=== PATIENT | female | born 1995 | race African-American/Black ===

== ENCOUNTER 2017-11-19 16:41 | Emergency (ER) | payer SELFPAY ==
[2017-11-19 18:02] LABS: #Basophils 0.1 thou/uL (0.0-0.2); #Eosinphils 0.2 thou/uL (0.0-0.7); #Lymphocytes 2.2 thou/uL (1.20-3.40); #Monocytes 0.5 thou/uL (0.11-0.59); %Basophils 1.2 % (0.0-1.0); %Eosinophils 3.6 % (0.0-10.0); %Lymphocytes 36.5 % (21.0-51.0); %Monocytes 8.8 % (0.0-10.0); %Neutrophils 49.9 % (42.0-75.0); Hemoglobin 12.8 g/dL (12.0-16.0); Mean Corpuscular HGB CONC 33.2 g/dL (32.0-36.0); Mean Corpuscular Hemoglobin 31.7 pg (27.0-31.0); Mean Corpuscular Volume 95.4 fl (81.0-99.0); Platelet Count 268 thou/uL (130-400); RBC Distribution Width 11.7 % (11.5-14.5); Red Blood Cell (RBC) Count 4.04 mill/uL (4.20-5.40)
[2017-11-19 18:08] LABS: INR-International Normal Ratio 0.9; PTT 27.5 SEC (22.9-36.1); Prothrombin Time 12.6 SEC (12.0-14.7)
[2017-11-19 18:25] LABS: Anion Gap 8 mmol/L (10-20); BUN (Urea Nitrogen) 11 mg/dL (7.0-18.7); Calc. Creatinine Clearance 0 mL/min (70-130); Calcium 9.2 mg/dL (7.8-10.44); Carbon Dioxide 26 mmol/L (22-29); Chloride 107 mmol/L (98-107); Estimated GFR-MDRD Greater than 90; Glucose 78 mg/dL (70-105); Potassium 4.3 mmol/L (3.5-5.1); Sodium 137 mmol/L (136-145)
--- NOTE | 2017-11-19 20:16 | CON ---
DATE OF CONSULTATION: 11/19/2017 TIME OF ADMISSION: 1745 hours. TIME OF VISIT: 1745 hours. PRIMARY CARE PHYSICIAN: Ede Rodriguez. CHIEF COMPLAINT: Right leg pain. HISTORY OF PRESENT ILLNESS: Ms. Rodriguez is a 22-year-old female with a history of anxiety, depressio n, and bipolar disorder who presents to the emergency department tonight sent by her primary doctor. The patient developed right leg pain and some swelling and went to [facility] ER about 5 days a go. She was diagnosed with a right lower extremity DVT, felt secondary to her oral contraceptive pil ls. She was given a dose of Xarelto and discharged home with a script for Xarelto. When she went to the pharmacy, she was unable to afford it and did not get it filled. She presented back to the [facility] Emergency Department 2 days later on 11/16/2017 and showed [facility] information, so she was instead given a dose of Lovenox and Coumadin, given a prescription for Coum coleen, Lovenox and sent home again. When she went to the pharmacy, she still could not afford the Lovenox and so did not get either one f illed. She presented to her primary care physician's office today and they subsequently told her to go to [facility] emergency department to get admitted. On arrival here, she had no lab work done. Her vitals were normal. We were called for admission. solar manager was contacted and was able to get them a coupon for the first 30 days of Xarelto for formerly [facility] e. PAST MEDICAL HISTORY: 1. Deep vein thrombosis. 2. Anxiety. 3. Bipolar disorder. 4. Depression. PAST SURGICAL HISTORY: Includes in 02/2016. HOME MEDICATIONS: Oral contraceptive pill, she is not taking at present. ALLERGIES: CITRIC ACID and to STRAWBERRIES. FAMILY HISTORY: Negative for clotting or bleeding disorder. No immune dysfunction. SOCIAL HISTORY: Negative for habits x3. She is not , but a significant other is with her. REVIEW OF SYSTEMS: A 10-point review of systems was performed, negative for all other systems except as stated as per HPI. Specifically, no chest pain, shortness of breath, no fevers or chills, coughi ng or hemoptysis. PHYSICAL EXAMINATION: VITAL SIGNS: Temperature 99.0, pulse 86, blood pressure 134/69, respiratory rate 16, satting 98% on room air. GENERAL: She is awake. She is alert. She is oriented x3, is well-developed, well-nourished female, appears to be in no acute distress. HEENT: Normocephalic, atraumatic. Pupils are equal, round, reactive to light bilaterally. ENT: Mucous membranes moist. There are no visible lesions. No thrush. NECK: Supple. She has no lymphadenopathy, JVD or thyromegaly. She has normal carotid upstrokes wit hout bruits. RESPIRATORY: Lungs are clear. She has no wheezing, no rales, no rhonchi. No prolonged expiratory p hase. She has good air movement. Symmetrical chest excursion. CARDIOVASCULAR: She has normal cardiac and regular. Normal S1 and S2. No S3 or S4. No audible mur murs. ABDOMEN: Soft, is nontender, nondistended. No masses, organomegaly. No rebound, rigidity or guardi ng. EXTREMITIES: No cyanosis, no clubbing. She has 1+ edema of the right lower extremity from the ankle down. Left extremity is normal. She has no palpable cords and normal pulses. SKIN: Warm, moist, and well perfused. She has no rashes or lesions. MUSCULOSKELETAL: Exam is normal to inspection. No joint inflammation. No palpable effusions. NEUROLOGIC: Cranial nerves II-XII are grossly intact. She has normal speech, 5/5 strength in all 4 extremities. No focal deficits. LABORATORY DATA: None. RADIOGRAPHIC STUDIES: None. ASSESSMENT AND PLAN: 1. Right lower extremity deep venous thrombosis: The patient was given a coupon by case management for free starter pack for Xarelto. I have given her a script for Xarelto and filled out the patient assistance paperwork. They were strongly encouraged to send this in as soon as possible to get 3-6 m onth course of Xarelto covered by the drug company for free. Everything is done except for her part and financial information can be sent in immediately. 2. Complication of oral contraceptive pills: Patient is currently off of them. We will leave that to the discretion of her primary care doctor. 3. Anxiety. 4. Depression. 5. Bipolar disorder, not on any medications. Recommend she follow up with the primary care physician in the next week and take her Xarelto as pres cribed at 15 b.i.d. and then 20 daily thereafter for 3-6 months total.
== END 2017-11-19 18:27 | disposition home or self-care (01) ==
LOC: ERS 16:41
DX: I82.4Z1 Acute embolism and thrombosis of unspecified deep veins of right distal lower extremity (principal); F31.9 Bipolar disorder, unspecified; F41.9 Anxiety disorder, unspecified
CPT/HCPCS: 36415; 80048; 85025; 85610; 85730; 99284

== ENCOUNTER 2017-12-23 22:19 | Emergency (ER) | payer SELFPAY ==
[~2017-12-23 22:19] MED LIST: ISOVUE-370 76%-LOCM 1 ML ONE
[2017-12-24 00:05] LABS: #Basophils 0.1 thou/uL (0.0-0.2); #Eosinphils 0.3 thou/uL (0.0-0.7); #Lymphocytes 2.7 thou/uL (1.20-3.40); #Monocytes 0.7 thou/uL (0.11-0.59); #Neutrophils 2.7 thou/uL (1.40-6.50); %Basophils 1.1 % (0.0-1.0); %Eosinophils 4.5 % (0.0-10.0); %Monocytes 10.5 % (0.0-10.0); %Neutrophils 41.9 % (42.0-75.0); Hemoglobin 11.8 g/dL (12.0-16.0); Mean Corpuscular HGB CONC 32.9 g/dL (32.0-36.0); Mean Corpuscular Hemoglobin 31.4 pg (27.0-31.0); Mean Corpuscular Volume 95.5 fl (81.0-99.0); Mean Platelet Volume 6.9 fL (7.4-10.4); Platelet Count 275 thou/uL (130-400); RBC Distribution Width 11.7 % (11.5-14.5); Red Blood Cell (RBC) Count 3.75 mill/uL (4.20-5.40); White Blood Cell (WBC) Count 6.5 thou/uL (4.8-10.8)
[2017-12-24 00:11] LABS: PTT 27.6 SEC (22.9-36.1); Prothrombin Time 13.2 SEC (12.0-14.7)
[2017-12-24 00:13] LABS: BHCG - Serum Negative (NEGATIVE); Pregs Control Background? CLEAR/WHITE (CLR/WHITE); Pregs Control Bar Appear? YES (CONTROL BAR)
[2017-12-24 00:25] LABS: ALT (SGPT) 12 U/L (8-55); AST (SGOT) 19 U/L (5-34); Albumin 3.7 g/dL (3.5-5.0); Alkaline Phosphatase 50 U/L (40-150); Anion Gap 11 mmol/L (10-20); BUN (Urea Nitrogen) 6 mg/dL (7.0-18.7); Bilirubin, Total 0.2 mg/dL (0.2-1.2); Calc. Creatinine Clearance 0 mL/min (70-130); Calcium 9.1 mg/dL (7.8-10.44); Carbon Dioxide 25 mmol/L (22-29); Chloride 107 mmol/L (98-107); Estimated GFR-MDRD Greater than 90; Globulin 3.1 g/dL (2.4-3.5); Glucose 97 mg/dL (70-105); Potassium 4.5 mmol/L (3.5-5.1); Protein, Total 6.8 g/dL (6.0-8.3); Sodium 138 mmol/L (136-145)
[2017-12-24 00:37] LABS: CKMB 0.7 ng/mL (0-6.6); Troponin I Less than 0.010 ng/mL (< 0.028)
[2017-12-24] MEDS ORDERED: Rivaroxaban 10 MG TAB PO SCH (01:30)
--- NOTE | 2017-12-24 07:17 | RAD ---
RADIOGRAPH CHEST 2 VIEWS: HISTORY: 22-year-old female with acute chest pain. FINDINGS: The lungs are clear. The cardiomediastinal silhouette and hilar shadows are normal. There is no pleur al effusion. The osseous structures appear normal. There is no pneumothorax. IMPRESSION: Normal. jn [] POS: [facility]
--- NOTE | 2017-12-24 07:38 | CT ---
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 Pt reports feeling tingling in her r arm and then the pain started in the r si de of her chest. Pt reports she has a blood clot in her r leg from control, diagnosed 11/24/17. Reports her breathing is heavier than normal, but denies SOB. TECHNIQUE: Axial computed tomographic angiography images of the chest with intravenous contrast using pulmonary embolism protocol. CONTRAST: 100 mL of ISOVUE 370 administered intravenously. COMPARISON: No relevant prior studies available. FINDINGS: Pulmonary arteries: No acute findings. No evidence of pulmonary embolism. Aorta: No acute findings. No thoracic aortic aneurysm. Lungs: Few bilateral scattered pulmonary nodules, largest measuring 8mm at the left base. Otherwise unremarkable. Pleural space: No acute findings. No significant effusion. No pneumothorax. Heart: Mildly enlarged. No pericardial effusion. Mediastinum: Anterior mediastinal density likely representing residual thymus. Bones/joints: No acute fracture. No dislocation. Soft tissues: No acute findings. Lymph nodes: No lymphadenopathy. Upper abdomen: Punctate right renal calculus. IMPRESSION: No acute findings. No evidence of pulmonary embolism. Few bilateral pulmonary nodules may represent granulomas. Other findings above. Thank you for allowing us to participate in the care of your patient. Dictated and Authenticated by: Placido Anthony MD 12/24/2017 2:04 AM Central Time ([place] & [place]) FINAL REPORT CTA CHEST WITH CONTRAST: Date: 12/23/17 HISTORY: Chest pain. COMPARISON: Chest radiograph from same date. FINDINGS/IMPRESSION: CT angiogram of chest performed after intravenous administration of contrast. 3D rendering is provide d. Findings and impression are concordant with the preliminary report by Deidra. POS: [facility]
== END 2017-12-24 02:30 | disposition home or self-care (01) ==
LOC: ERS 22:19
DX: R07.9 Chest pain, unspecified (principal); I82.401 Acute embolism and thrombosis of unspecified deep veins of right lower extremity; F41.9 Anxiety disorder, unspecified; F31.9 Bipolar disorder, unspecified; Z79.01 Long term (current) use of anticoagulants; Z79.891 Long term (current) use of opiate analgesic
CPT/HCPCS: 36415; 71046; 71275; 80053; 82553; 84484; 84703; 85025; 85610; 85730; 93005

== ENCOUNTER 2018-06-14 16:39 | Emergency (ER) | payer SELFPAY ==
[2018-06-14 18:03] LABS: #Basophils 0.1 thou/uL (0.0-0.2); #Eosinphils 0.1 thou/uL (0.0-0.7); #Lymphocytes 1.9 thou/uL (1.20-3.40); #Monocytes 0.7 thou/uL (0.11-0.59); #Neutrophils 5.9 thou/uL (1.40-6.50); %Basophils 0.9 % (0.0-1.0); %Eosinophils 0.8 % (0.0-10.0); %Lymphocytes 21.9 % (21.0-51.0); %Monocytes 7.9 % (0.0-10.0); %Neutrophils 68.5 % (42.0-75.0); Mean Corpuscular HGB CONC 33.9 g/dL (32.0-36.0); Mean Corpuscular Hemoglobin 31.1 pg (27.0-31.0); Mean Corpuscular Volume 91.9 fL (78.0-98.0); Mean Platelet Volume 7.3 fL (7.4-10.4); Platelet Count 272 thou/uL (130-400); RBC Distribution Width 12.8 % (11.5-14.5); Red Blood Cell (RBC) Count 3.85 mill/uL (4.20-5.40); White Blood Cell (WBC) Count 8.5 thou/uL (4.8-10.8)
[2018-06-14 18:08] LABS: PTT 28.2 SEC (22.9-36.1); Prothrombin Time 13.3 SEC (12.0-14.7)
[2018-06-14 18:20] LABS: ALT (SGPT) 14 U/L (8-55); AST (SGOT) 21 U/L (5-34); Albumin 4.2 g/dL (3.5-5.0); Alkaline Phosphatase 68 U/L (40-150); Anion Gap 11 mmol/L (10-20); BUN (Urea Nitrogen) 9 mg/dL (7.0-18.7); Bilirubin, Total 0.3 mg/dL (0.2-1.2); Calc. Creatinine Clearance 0 mL/min (70-130); Calcium 9.1 mg/dL (7.8-10.44); Carbon Dioxide 24 mmol/L (22-29); Chloride 109 mmol/L (98-107); Estimated GFR-MDRD Greater than 90; Globulin 3.3 g/dL (2.4-3.5); Glucose 81 mg/dL (70-105); Protein, Total 7.5 g/dL (6.0-8.3); Sodium 140 mmol/L (136-145)
[2018-06-14] MEDS ORDERED: HYDROcodone/Acetaminophen 10/325 mg Tablet ONE (18:44)
--- NOTE | 2018-06-14 18:46 | ULT ---
VENOUS DUPLEX SONOGRAM RIGHT LOWER EXTREMITY: 06/14/18 HISTORY: Right leg pain and edema. FINDINGS: The right common femoral vein and greater saphenous junction were evaluated along with the femoral, d eep femoral, popliteal, and posterior tibial veins. There is good color and spectral doppler flow, co mpression and augmentation. IMPRESSION: No sonographic evidence of DVT right lower extremity. POS: [facility]
[2018-06-14 18:52] LABS: CKMB 1.6 ng/mL (0-6.6); Troponin I Less than 0.010 ng/mL (< 0.028)
== END 2018-06-14 20:18 | disposition home or self-care (01) ==
LOC: ERS 16:39
DX: I87.001 Postthrombotic syndrome without complications of right lower extremity (principal)
CPT/HCPCS: 36415; 80053; 82553; 83880; 84484; 85025; 85379; 85610; 85730; 93005